=== PATIENT | male | born 1990 | race African-American/Black ===

== ENCOUNTER 2023-08-13 07:24 | Emergency (ER) | payer MEDICAID, OTHER ==
[~2023-08-13] VITALS: Ht 185.4 cm; Wt 77.2 kg
[2023-08-13 07:42] VITALS: BP 151/90; PULSE 94; RESP 16; O2SAT 97
[2023-08-13] MEDS ORDERED: cefTRIAXone SOD 1,000 MG VL IM ONE (09:30)
== END 2023-08-13 09:48 | disposition left against medical advice (07) ==
LOC: EDBD 07:24 → ER 07:24
DX: J40 Bronchitis, not specified as acute or chronic (principal); R07.89 Other chest pain
CPT/HCPCS: 93005